=== PATIENT | male | born 1965 | race Caucasian/White ===

== ENCOUNTER 2024-03-07 19:01 | Emergency (ER) | payer OTHER ==
[~2024-03-07] VITALS: Ht 180.3 cm; Wt 122.9 kg
[2024-03-07] MEDS ORDERED: ALPRAZolam 1 MG TAB PO ONE (19:45)
[2024-03-07] MEDS ORDERED: FAMOTIDINE 20 MG TAB PO ONE (19:45)
[2024-03-07 19:48] LABS: HEMOGLOBIN 16.6 g/dL (12.0-18.0)
[2024-03-07 19:53] LABS: BASOPHILS 0.8 % (0-2); EOSINOPHILS 0.8 % (0-6); HEMATOCRIT 48.5 % (35.0-50.0); LYMPHOCYTES 21.9 % (24-44); MCH 30.9 (27-36); MCHC 34.3 g/dl (30-36); MONOCYTES 10.1 % (0-12); NEUTROPHILS 66.4 % (39-80); PLATELET COUNT 276 K/uL (140-440); RBC 5.39 M/ul (4.3-5.7)
[2024-03-07 20:05] LABS: ALBUMIN/GLOBULIN RATIO 0.98 (1.1-2.4); ALCOHOL, MEDICAL <3 ng/dL (<3); ALKALINE PHOSPHATASE 80 U/L (46-116); ALT (SGPT) 35 U/L (14-59); ANION GAP 12.6 (7-21); AST (SGOT) 23 U/L (15-37); BILIRUBIN, TOTAL 0.8 ng/dL (0.2-1.0); BUN/CREATININE RATIO 5.55 (6.0-28.6); CALCIUM 9.5 mg/dL (8.5-10.1); CARBON DIOXIDE 29 mmol/L (21-32); CHLORIDE 104 mmol/L (98-107); CREATININE, SERUM 1.08 mg/dL (0.70-1.30); GLOMERULAR FILTRATION RATE,EST 79 mL/min (>60); POTASSIUM 3.6 mmol/L (3.5-5.1); PROTEIN, TOTAL 8.1 g/dL (6.4-8.2); UREA NITROGEN 6 mg/dL (7-18)
[2024-03-07 20:19] LABS: BILIRUBIN, URINE NEGATIVE (negative); BLOOD/HGB, URINE NEGATIVE (Negative); KETONE, URINE NEGATIVE (Negative); LEUK ESTERASE, URINE NEGATIVE (negative); NITRITE, URINE NEGATIVE (negative)
[2024-03-07 20:33] LABS: AMPHETAMINES, URINE POSITIVE (NEGATIVE); BARBITURATES, URINE NEGATIVE (NEGATIVE); BENZODIAZEPINE, URINE NEGATIVE (NEGATIVE); BUPRENORPHINE, URINE NEGATIVE (NEGATIVE); CANNABINOID, URINE POSITIVE (NEGATIVE); COCAINE, URINE NEGATIVE (NEGATIVE); ECSTASY, URINE NEGATIVE (NEGATIVE); FENTANYL, URINE NEGATIVE (NEGATIVE); METHADONE, URINE NEGATIVE (NEGATIVE); OPIATES, URINE NEGATIVE (NEGATIVE); OXYCODONE, URINE NEGATIVE (NEGATIVE); PHENCYCLIDINE, URINE NEGATIVE (NEGATIVE)
[2024-03-07 22:17] VITALS: BP 121/87
--- NOTE | 2024-03-08 22:54 | EKG ---
[facility] [address] [facility] [place] [address] Signed Normal sinus rhythm Cannot rule out Anterior infarct , age undetermined Abnormal ECG No previous ECGs available Confirmed by Bethany Cesar MD () on 03/08/2024 10:54:41 PM Electronically Signed By: BETHANY CESAR MD 03/08/24 2254 PATIENT NAME: TAYLOR GLASER Electrocardiogram DATE OF : 61 PHYSICIAN: BETHANY CESAR MD REPORT #: [id number] REPORT IS CONFIDENTIAL AND NOT TO BE RELEASED WITHOUT AUTHORIZATION
== END 2024-03-07 22:17 | disposition home or self-care (01) ==
LOC: ED 19:01
PROVIDERS: Internal Medicine
DX: F41.1 Generalized anxiety disorder (principal); F19.90 Other psychoactive substance use, unspecified, uncomplicated; I10 Essential (primary) hypertension; K21.9 Gastro-esophageal reflux disease without esophagitis; Z79.899 Other long term (current) drug therapy
CPT/HCPCS: 36415; 71045; 80053; 80307; 81003; 83690; 83735; 83880; 84484; 85025; 93005; 93010; 99285-25; G0480

== ENCOUNTER 2024-03-09 18:45 | Emergency (ER) | payer OTHER ==
[~2024-03-09] VITALS: Ht 180.3 cm; Wt 124.0 kg
--- OUTSIDE RECORDS SUMMARY | 2024-03-09 18:52 | XMS ---
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 EKayla VISIT COUNT (12 MO.) [address] [place] [address] TOTAL 2 NOTE: Visits indicate total known visits. ED/UCC VISIT TRACKING (12 MO.) 03/09/2024 18:46 [facility] [place] TYPE: Emergency COMPLAINT: - NUMBNESS 03/07/2024 19:01 [facility] TYPE: Emergency COMPLAINT: - ANXIETY DIAGNOSES: - Anxiety disorder, unspecified - Essential (primary) hypertension - Gastro-esophageal reflux disease without esophagitis - Generalized anxiety disorder - Other emt intermediate (current) drug therapy - Other psychoactive substance use, unspecified, uncomplicated INPATIENT VISIT TRACKING (12 MO.) No inpatient visits to display in this time frame [email or web address]
[2024-03-09] MEDS ORDERED: METOPROLOL SUCC50 MG PO (19:00)
[2024-03-09] MEDS ORDERED: DOXEPIN HCL10 MG PO (19:00)
[2024-03-09] MEDS ORDERED: SILDENAFIL CIT100 MG PO (19:00)
[2024-03-09] MEDS ORDERED: PANTOPRAZOLE SO40 MG PO (19:00)
[2024-03-09 19:07] VITALS: BP 155/87
[2024-03-09] MEDS ORDERED: FAMOTIDINE 20 MG TAB PO ONE (19:15)
== END 2024-03-09 19:20 | disposition home or self-care (01) ==
LOC: ED 18:45
DX: F41.9 Anxiety disorder, unspecified (principal); K21.9 Gastro-esophageal reflux disease without esophagitis; I10 Essential (primary) hypertension; R73.03 Prediabetes; Z79.899 Other long term (current) drug therapy
CPT/HCPCS: 99284

== ENCOUNTER 2024-03-27 14:50 | Emergency (ER) | payer OTHER ==
[~2024-03-27] VITALS: Ht 180.3 cm; Wt 122.8 kg
[~2024-03-27 14:50] MED LIST: DOXEPIN HCL10 MG PO; METOPROLOL SUCC50 MG PO; PANTOPRAZOLE SO40 MG PO; SILDENAFIL CIT100 MG PO
--- OUTSIDE RECORDS SUMMARY | 2024-03-27 14:57 | XMS ---
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 Margarita VISIT COUNT (12 MO.) [address] [place] [address] TOTAL 3 NOTE: Visits indicate total known visits. ED/UCC VISIT TRACKING (12 MO.) 03/27/2024 14:50 [facility] TYPE: Emergency COMPLAINT: - PANIC ATTACK 03/09/2024 18:[address] [facility] [place] TYPE: Emergency COMPLAINT: - NUMBNESS DIAGNOSES: - Anesthesia of skin - Anxiety disorder, unspecified - Essential (primary) hypertension - Gastro-esophageal reflux disease without esophagitis - Other care home (current) drug therapy - Prediabetes 03/07/2024 19:01 [facility] [place] TYPE: Emergency COMPLAINT: - ANXIETY DIAGNOSES: - Anxiety disorder, unspecified - Essential (primary) hypertension - Gastro-esophageal reflux disease without esophagitis - Generalized anxiety disorder - Other care home (current) drug therapy - Other psychoactive substance use, unspecified, uncomplicated INPATIENT VISIT TRACKING (12 MO.) No inpatient visits to display in this time frame [email or web address]
[2024-03-27] MEDS ORDERED: ALPRAZolam 1 MG TAB PO ONE (15:15)
[2024-03-27] MEDS ORDERED: SERTRALINE HCL100 MG PO (15:25)
[2024-03-27] MEDS ORDERED: HYDROXYZINE HCL10 MG PO (15:28)
[2024-03-27] MEDS ORDERED: XANAX1 MG PO (16:24)
[2024-03-27 16:28] VITALS: BP 144/97
== END 2024-03-27 16:28 | disposition home or self-care (01) ==
LOC: ED 14:50
DX: F41.0 Panic disorder [episodic paroxysmal anxiety] (principal); I10 Essential (primary) hypertension; R73.03 Prediabetes; Z79.899 Other long term (current) drug therapy
CPT/HCPCS: 99283